=== PATIENT | female | born 1975 | race American Indian/Alaskan Native ===

== ENCOUNTER 2025-02-11 14:40 | Emergency (ER) | payer BC, SELFPAY ==
[2025-02-11 14:40] VITALS: BMI 47.6
[2025-02-11 14:46] VITALS: BP 171/132; BP 180/129; PULSE 92; RESP 18; TEMP 36.8; O2SAT 98
--- NOTE | 2025-02-11 14:47 | XR_ITS ---
Examination: Pelvic ultrasound, transabdominal, complete Technique: Transabdominal ultrasound of the pelvis performed using grayscale imaging Date and time of exam: February 11, 2025, 1640 hours INDICATIONS: Irregular heavy vaginal bleeding beginning yesterday FINDINGS: Uterus 8.2 cm endometrial stripe 0.58 cm No uterine mass or intrauterine gestation Ovaries obscured by bowel gas IMPRESSION: Limited study. No uterine mass or intrauterine gestation
--- NOTE | 2025-02-11 14:54 | EKG_ITS ---
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
[2025-02-11 15:05] VITALS: BP 171/132; PULSE 92
[2025-02-11] MEDS: cloNIDine HCL 0.1 MG TABLET 0.2 MG PO (15:05)
[2025-02-11 15:28] LABS: Collection Type, Urine Voided; Squamous Epithelial Cell,Urine 0 /hpf (0-5)
[2025-02-11 15:32] LABS: Basophils # (Auto) 0.1 Thou/mm3 (0.0-0.2); Basophils % (Auto) 1 % (0-2.5); Eosinophils # (Auto) 0.1 Thou/mm3 (0.0-0.5); Eosinophils % (Auto) 2 % (0-10); Hematocrit 41.6 % (36.0-46.0); Hemoglobin 13.7 g/dL (12.0-16.0); Immature Granulocytes % (Auto) 0 % (0-0); Immature Granulocytes Auto 0.02 Thou/mm3 (0.00-0.00); Lymphocytes # (Auto) 1.9 Thou/mm3 (1.0-4.8); Lymphocytes % (Auto) 31 % (10-50); Mean Corpuscular HGB Conc 32.9 g/dl (31.0-37.0); Mean Corpuscular Hemoglobin 28.1 pg (25.0-35.0); Mean Corpuscular Volume 85 fL (80-100); Monocytes # (Auto) 0.3 Thou/mm3 (0.0-0.8); Monocytes % (Auto) 5 % (0-12); Neutrophils # (Auto) 3.7 Thou/mm3 (1.8-7.7); Neutrophils % (Auto) 61 % (37-80); Nucleated Red Blood Cell % 0 /100 WBC (0); Platelet Count 260 Thou/mm3 (140-440); RDW Standard Deviation 45.4 fL (36.4-46.3); Red Blood Count 4.88 Miln/mm3 (4.00-5.20)
--- NOTE | 2025-02-11 15:39 | PD.EDVAGBL ---
ED OB Contraction Preg RMI/HPI General Chief complaint: Vaginal Bleeding Stated complaint: SEVERE MENSTRUAL PERIOD Time Seen by Provider: 02/11/25 14:43 Arrival date/time: 02/11/25 14:40 This is a case of a 49-year-old female who came in in the emergency room due to heavy vaginal bleeding patient states that menstrual period is irregular LMP was last month patient states that that her menstrual period started 2 days ago it was heavy with blood clots patient denies patient have no history of 0 patient denies any vaginal bleeding any urinary symptoms denies any abdominal pain Limitations: no limitations Related Data Previous Rx's ?Medication ?Instructions ?Recorded amoxicillin 875 mg-potassium 1 tab PO Q12H #20 tabs 04/04/18 clavulanate 125 mg tablet (Augmentin) hydrocodone 5 mg-acetaminophen 325 1 tab PO Q6H PRN pain #10 tabs 04/04/18 mg tablet ([place]) amoxicillin 875 mg-potassium 1 tab PO BID #14 tabs 04/24/21 clavulanate 125 mg tablet (Augmentin) albuterol sulfate 90 mcg/actuation 2 puff inhalation Q6H PRN 06/22/23 aerosol inhaler (Ventolin HFA) shortness of breath or wheezing #8.5 grams benzonatate 100 mg capsule 100 mg PO TID #14 caps 06/22/23 albuterol sulfate 2.5 mg/3 mL 2.5 mg (3 mL) inhalation Q4H PRN 03/11/24 (0.083 %) solution for nebulization shortness of breath or wheezing #90 mL prednisone 50 mg tablet 50 mg PO QDAY #7 tabs 03/11/24 cephalexin 500 mg capsule 500 mg PO QID #40 caps 02/11/25 medroxyprogesterone 10 mg tablet 10 mg PO QDAY 5 days #5 tabs 02/11/25 (Provera) Allergies Allergy/AdvReac Type Severity Reaction Status Date / Time clarithromycin Allergy Severe DIFF Verified 02/11/25 14:43 BREATHING AND HIVES tramadol Allergy Hallucinati Verified 02/11/25 14:43 ng NECTARINE TREE Allergy Intermediate HIVES, Uncoded 02/11/25 14:43 DIFF BREATHING PEACHES AdvReac Intermediate HIVES, Uncoded 02/11/25 14:43 DIFF BREATHING Review of Systems Review of Systems Systems Reviewed: All systems reviewed, normal except as documented Constitutional Constitutional: Reports system reviewed and no additional complaints, except as documented and Reports as per HPI ENT Ears, Nose, Mouth, and Throat: Denies dysphagia and Denies odynophagia Cardiovascular Cardiovascular: Reports system reviewed and no additional complaints, except as documented and Reports as per HPI Respiratory Respiratory: Reports system reviewed and no additional complaints, except as documented and Reports as per HPI Gastrointestinal Gastrointestinal: Reports system reviewed and no additional complaints, except as documented, Denies abdominal pain, Denies belching, Denies bloating, Denies change in bowel habits, Denies change in stool character, Denies coffee ground emesis, Denies constipation, Denies cramping, Denies diarrhea, Denies dyspepsia, Denies dysphagia, Denies early satiety, Denies excessive flatus, Denies fecal incontinence, Denies heartburn, Denies hematemesis, Denies hematochezia, Denies loose stools, Denies melena, Denies nausea, Denies odynophagia, Denies tenesmus and Denies vomiting Genitourinary Genitourinary: Reports system reviewed and no additional complaints, except as documented, Reports as per HPI, Reports abnormal menses, Reports abnormal vaginal bleeding, Denies amenorrhea, Denies change in libido, Denies difficulty conceiving, Denies difficulty voiding, Denies dysmenorrhea, Denies dyspareunia, Denies dysuria, Denies flank pain, Denies genital lesions, Denies genital pruritis, Denies hematuria, Denies hot flashes, Denies light periods, Reports menorrhagia, Denies metrorrhagia, Denies nipple discharge, Denies nocturia, Denies pelvic pain, Denies post void dribbling, Denies prolapse symptoms, Denies sexual dysfunction, Denies urinary frequency, Denies urinary incontinence, Denies urinary hesitancy, Denies urinary urgency, Denies vaginal discharge, Denies vaginal dryness, Denies vaginal odor and Denies vaginal pruritus Integumentary/Breasts Skin/Breast: Denies nipple discharge Neurologic Neurologic: Reports system reviewed and no additional complaints, except as documented and Reports as per HPI Psychiatric Psychiatric: Denies change in libido Endocrine Endocrine: Denies change in libido ED Exam General Limitations: Present no limitations General appearance: Present alert and in no apparent distress Head Head exam: Present atraumatic, normocephalic and normal inspection Eye Eye exam: Present normal appearance, PERRL and EOMI ENT ENT exam: Present normal exam, normal oropharynx and mucous membranes moist Neck Neck exam: Present normal inspection, full ROM and trachea midline; Absent tenderness, meningismus, lymphadenopathy or thyromegaly Chest Chest inspection: Present normal inspection and symmetric chest wall rise Respiratory Respiratory exam: Present normal lung sounds bilaterally; Absent respiratory distress, wheezes, stridor, accessory muscle use or prolonged expiratory phase Cardiovascular Cardiovascular exam: Present regular rate, normal rhythm and normal heart sounds Abdominal Exam Abdominal exam: Present soft and normal bowel sounds; Absent distention, tenderness, guarding, rebound, rigidity, diminished bowel sounds, hyperactive bowel sounds, hypoactive bowel sounds, organomegaly, trauma, incision, psoas sign, obturator sign, heel tap sign, Quinn's sign, Rovsing's sign, tenderness at McBurney's Point, bruit, pulsatile mass, hernia or scar Extremities Exam Extremities exam: Present normal inspection and full ROM Back Exam Back exam: Present normal inspection and full ROM Neurological Exam Neurological exam: Present alert, oriented X3, CN II-XII intact, normal gait and reflexes normal; Absent motor sensory deficit Psychiatric Psychiatric exam: Present normal affect and normal mood Skin Skin exam: Present warm, dry, intact and normal color Course Quality Measures none Orders Category Date Time Status EKG (ED ONLY) *Do not use* NOW Care 02/11/25 14:54 Active EKG (ED Only) Stat Exams 02/11/25 14:54 Draft US pelvic complete Stat Exams 02/11/25 14:47 Completed ABO/RH Type Stat Lab 02/11/25 15:09 Completed Beta HCG,Quantitative Stat Lab 02/11/25 15:09 Completed CBC Stat Lab 02/11/25 15:09 Completed CMP [Comprehensive Metabolic Panel] Stat Lab 02/11/25 15:09 Completed Urinalysis Stat Lab 02/11/25 15:17 Completed cloNIDine HCL [Catapres] Med 02/11/25 14:54 Discontinued 0.2 mg PO X1 ONE Vital Signs Vital signs: Vital Signs Temperature 98.2 F 02/11/25 14:46 Pulse Rate 92 02/11/25 14:46 Respiratory Rate 18 02/11/25 14:46 Blood Pressure 171/132 H 02/11/25 14:46 Pulse Oximetry (%) 98 02/11/25 14:46 Oxygen Delivery Method Room Air 02/11/25 14:46 Vaginal Bleeding MDM Narrative MDM Narrative: This is a case of a 49-year-old female who came in in the emergency room due to heavy vaginal bleeding patient states that menstrual period is irregular LMP was last month patient states that that her menstrual period started 2 days ago it was heavy with blood clots patient denies patient have no history of 0 patient denies any vaginal bleeding any urinary symptoms denies any abdominal pain physical examination patient is awake alert oriented not in distress nontoxic looking with excellent skin turgor abdominal exam is benign no guarding no rebound no rigidity negative psoas negative obturator negative Rovsing's negative McBurney's negative Quinn sign negative CVA tenderness no bladder distention or tenderness vital signs initial BP noted to be 180/100 patient states that she did not take his medication for blood pressure I reassessed the patient blood pressure was 165/110 thus patient was given clonidine 0.2 p.o. EKG showed sinus rhythm at 83 heart rate no chest pain no shortness of breath no palpitation BP was rechecked her 135/86 patient is not tachycardic not tachypneic not hypoxic and afebrile blood test showed no leukocytosis no anemia kidney and liver function is normal platelet is normal no electrolyte imbalance patient is not ultrasound showed normal no fibroids no ovarian cyst at this point patient will be discharged home in stable condition I prescribed 5 tablets of Provera just to minimize the bleeding until she sees the OB aircraft detail draftsperson the importance to see your OB aircraft detail draftsperson was discussed with the patient patient understood verbally patient was also prescribed cephalexin for urinary tract infection increase water intake and advised to take cranberry juice Patient was discharged with comfortable condition walking with stable gait. Patient verbalized no further complains explained diagnosis and answered patient question. Patient is comfortable with the proposed management plan including the need to follow up with his/her primary care physician and any specialist if applicable Discussed patient for any urgent condition or worsening sx, He/She needed to go to emergency room immediately or call 911. Patient acknowledge the responsibility to follow up as instructed and to monitor her/his symptoms. For any persistence of the symptoms for more than 3-5 days return precaution advised. Discussed the result of the test and was given printed discharge instruction Patient data External records reviewed:: [facility] previous records Clinical information provided by:: patient Social determinants that could affect healthcare access:: none Patient has the following chronic illnesses:: None How is presenting disease/condition affected by chronic disease/condition?: no chronic disease Evaluation data The following diagnostics were reviewed and interpreted by me:: lab results and radiology exam(s) Lab and/or radiology exams considered but not ordered:: Reviewed Interpretation Summary: Reviewed Medications / Prescriptions Medications or Prescriptions considered but not ordered:: Given Medication administrations:: Medication Administration History Discontinued Medications Clonidine (Clonidine Hcl 0.1 Mg Tablet) 0.2 mg PO X1 ONE Stop: 02/11/25 14:55 Last Admin: 02/11/25 15:05 Dose: 0.2 mg Documented By: KF Given Consultations Consultation(s) initiated? (list below): No Diagnosis Vaginal Bleeding Differential Diagnosis: dysfunctional uterine bleeding and vaginal bleeding Most likely diagnosis given after review of the tests above:: Abnormal vaginal bleeding Admission Indicated Admission indicated?: not indicated Explain why admission is indicated or not indicated:: Not indicated Admission Request Was there a request for admission?: No Admission Attestation Admission request attestation: Not indicated Disposition Plan Disposition Plan: Discharge Discharge Attestation Discharge Attestation: The patient and all family members were given an opportunity to ask questions and understood the discharge instructions. Discharge instructions specifically effects, indications for sooner follow up or return to the emergency department, and the expected course of current diagnosis. Patient condition: Stable Discharge Plan Plan Patient Disposition: HOME (Self Care) Patient condition on transfer: Stable Prescriptions/Referrals Prescriptions/Med Rec: New cephalexin 500 mg capsule 500 mg PO QID Qty: 40 0RF medroxyprogesterone [Provera] 10 mg tablet 10 mg PO QDAY 5 Days Qty: 5 0RF No Action hydrocodone-acetaminophen [[place]] 5-325 mg tablet 1 tab PO Q6H MDD 4 tabs PRN (Reason: pain) Qty: 10 0RF amoxicillin-pot clavulanate [Augmentin] 875-125 mg tablet 1 tab PO Q12H Qty: 20 0RF amoxicillin-pot clavulanate [Augmentin] 875-125 mg tablet 1 tab PO BID Qty: 14 0RF benzonatate 100 mg capsule 100 mg PO TID Qty: 14 0RF albuterol sulfate [Ventolin HFA] 90 mcg/actuation HFA aerosol inhaler 2 puff inhalation Q6H PRN (Reason: shortness of breath or wheezing) Qty: 8.5 0RF prednisone 50 mg tablet 50 mg PO QDAY Qty: 7 0RF albuterol sulfate 2.5 mg /3 mL (0.083 %) solution for nebulization 2.5 mg inhalation Q4H PRN (Reason: shortness of breath or wheezing) Qty: 90 0RF Referrals: Faustino Page FNP [Primary Care Provider] - In 1 week Problem List Clinical Impression: Abnormal uterine and vaginal bleeding, unspecified, Urinary tract infection Patient/Caregiver Discharge Instructions Education Materials: Urinary Tract Infections in Women, ED Dysfunctional Uterine Bleeding Additional Instructions: Follow-up with your primary care physician in 2 days for reevaluation it is very important to be referred to OB aircraft detail draftsperson for further evaluation and treatment of abnormal uterine bleeding for any persistence or recurrence worsening symptoms or any emergent concern call 911 or go to the nearest emergency room take your medication and finish the course of antibiotic increase water intake keep hydrated is advised Print Language: Moroccan Stand Alone Forms: An Award Info., Patient Portal Info Letter COCO/TRAFFIC COUNTER Supervising Physician COCO/TRINA Supervising Physician: Dr perea
[2025-02-11 15:48] LABS: Bilirubin,Urine Negative (Negative); Blood,Urine 3+ (Negative); Glucose, Urine Negative (Negative); Ketones,Urine Trace (Negative); Leukocyte Esterase,Urine Positive (Negative); Nitrite,Urine Negative (Negative); PH,Urine 5.5 (5.0-7.0); Protein,Urine 1+ (Neg - Trace); Specific Gravity,Urine 1.015 (1.001-1.035); Urobilinogen,Urine Negative mg/dL (0.0-1.0); WBC,Urine 52 /hpf (0-5)
[2025-02-11 15:49] LABS: Clarity,Urine Bloody (Clear/Hazy); Color,Urine Drk Red (Lt Yel-Yel)
[2025-02-11 15:51] LABS: Alanine Aminotransferase 23 U/L (10-49); Albumin, Serum 4.3 gm/dL (3.5-5.0); Albumin/Globulin Ratio 1.6 (1.2-2.2); Alkaline Phosphatase 87 U/L (46-116); Anion Gap 8 (7-16); Aspartate Amino Transferase 22 U/L (0-34); BUN/Creatinine Ratio 6 Ratio (12-20); Beta HCG,Quantitative < 1 mIU/mL (<5.0); Bilirubin,Total 0.5 mg/dL (0.3-1.2); Blood Urea Nitrogen 5 mg/dL (9-23); Calcium 8.9 mg/dL (8.3-10.6); Calcium (Corrected) 8.9 mg/dL (8.5-10.1); Carbon Dioxide 25.3 mMol/L (20.0-31.0); Chloride 107 mMol/L (98-107); Creatinine (Component) 0.9 mg/dL (0.6-1.3); Estimated Creatinine Clearance 112.4 mL/min (>60); Globulin 2.7 gm/dL (2.3-3.5); Glucose 148 mg/dL (74-106); Osmolality,Calculated 279 (275-295); Potassium 3.9 mMol/L (3.4-5.1); Sodium 140 mMol/L (136-145); eGFR > 60 See Note
[2025-02-11 16:00] VITALS: BP 165/106; PULSE 75; RESP 18; TEMP 37.3; O2SAT 98
--- NOTE | 2025-02-11 16:18 | PC.NURSE ---
PT TOLD THIS RN SHE HAS FULL BLADDER AND READY FOR US. SPOKE W/US AT THIS TIME, THEY ARE WITH A PT AND WILL SEE HER NEXT
[2025-02-11 17:46] VITALS: BP 135/86; PULSE 93; RESP 18; TEMP 36.7; O2SAT 99
== END 2025-02-11 17:57 | disposition home or self-care (01) ==
PROVIDERS: Nurse Practitioner Family; Emergency Provider Family Medicine
DX: N93.8 Other specified abnormal uterine and vaginal bleeding (principal); N39.0 Urinary tract infection, site not specified
CPT/HCPCS: 36415; 76856; 80053; 81001; 84702; 85025; 86900; 86901; 93005; 99284; A9270

== ENCOUNTER 2025-05-02 08:37 | Outpatient (AMB) | payer BC, SELFPAY ==
[2025-05-02 08:57] VITALS: BP 125/85; PULSE 72; RESP 16; TEMP 36.6; O2SAT 97; BMI 41.3
--- NOTE | 2025-05-02 08:57 | GYNCLNT_ITS ---
Vital Signs 05/02/25 08:57 Height 1.7 m Height Method Stated Weight 119.748 kg Weight Measurement Method Standing Scale BMI 41.3 BP 125/85 H Blood Pressure Source Automatic Cuff Blood Pressure Location Left Upper Arm Position Sitting Respiration 16 Pulse 72 Pulse Source Monitor Temp 97.9 F Temp Source Oral Pulse Oximetry (%) 97 Oxygen Delivery Method Room Air Allergies/Home Meds Allergies & Medications Allergies clarithromycin Allergy (Severe, Verified 05/02/25 08:58) DIFF BREATHING AND HIVES tramadol Allergy (Verified 05/02/25 08:58) Hallucinating NECTARINE TREE Allergy (Intermediate, Uncoded 05/02/25 08:58) HIVES, DIFF BREATHING PEACHES Adverse Reaction (Intermediate, Uncoded 05/02/25 08:58) HIVES, DIFF BREATHING Medication Reconciliation albuterol sulfate 90 mcg/actuation aerosol inhaler (Ventolin HFA) 2 puff inhalation Q6H PRN shortness of breath or wheezing #8.5 grams 06/22/23 [Rx Confirmed 05/02/25] benzonatate 100 mg capsule 100 mg PO TID #14 caps 06/22/23 [Rx Confirmed 05/02/25] albuterol sulfate 2.5 mg/3 mL (0.083 %) solution for nebulization 2.5 mg (3 mL) inhalation Q4H PRN shortness of breath or wheezing #90 mL 03/11/24 [Rx Confirmed 05/02/25] prednisone 50 mg tablet 50 mg PO QDAY #7 tabs 03/11/24 [Rx Confirmed 05/02/25] Intake Visit Data Collection New Patient or Established: Established Patient (seen at [facility] within 3 years) Reason for Visit:: HEAVY MENSES Seen by Clinical Staff ONLY (RN/MA): No Edge Polisher Required: No Do You Feel Safe at Home: Yes Authorities Contacted: N/A PCP or OBGYN visit in last 3 months: Yes Hx Now: No Are you currently on any form of Control: No Last menstrual period: 04/22/25 Pain Present Currently: No Pain Scale Used: Valderrama-Howard/Numerical Pain scale:: 0 Smoking Status Smoking Status: Never smoker 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 1. Little interest or pleasure in doing things: not at all 2. Feeling down, depressed, or hopeless: not at all Total score: 0 PHQ-9 3. Trouble falling or staying asleep, or sleeping too much: Not at all 4. Feeling tired or having little energy: Not at all 5. Poor appetite or overeating: Not at all 6. Feeling bad about yourself - or that you are a failure or have let yourself or your family down: Not at all 7. Trouble concentrating on things, such as reading the newspaper or watching television: Not at all 8. Moving or speaking so slowly that other people could have noticed? - Or the opposite - being so fidgety or restless that you have been moving around a lot more than usual: not at all 9. Thoughts that you would be better off or of hurting yourself in some way: Not at all Total score: 0 Source: Developed by Drs. Bhupendra Paulino, Carmela Dean, Zhao Corral and colleagues, with an educational caroline from [employer]. Depression screen completed yes Social History Living Situation History Lives With: Family Housing: House Tobacco History Smoking Status: Never smoker Second Hand Smoke Exposure: No Alcohol History Alcohol Intake: Current Alcohol Intake Frequency: holidays/special occasions only Domestic Abuse History Do You Feel Safe at Home: Yes History of Present Illness HPI Narrative Chief Complaint Pessary management Patient is an 84-year-old presenting for pessary management. She has had her pessary for 10 years, previously managed by Dr. Mak in [place]. She rep orts cleaning the pessary herself at home and visiting Dr. Mak every six months for check-ups. Three months ago, she experienced a slight kidney infection that was treated with antibiotics. She has a history of hysterectomy due to hemorrhaging and a history of breast cancer, with her right breast removed. Currently, [facility] due to a newly discovered lump in her left breast. Medical History: - Kidney infection treated with antibiotics three months ago - Breast cancer with right breast removal - Hypertension Surgical History: - Right breast removal due to breast cancer - Hysterectomy due to hemorrhaging - Gastric bypass Obstetric History: - GPAL: A0 L5 - All 5 pregnancies resulted in vaginal deliveries Medications: - Metoprolol - [id number] multivitamins Social History: - Obstetric History: 5, para 5, all vaginal deliveries Exam General General Appearance: alert, in no apparent distress and healthy appearing Head Head exam: atraumatic Neck Neck exam: Present normal inspection and trachea midline Chest Chest inspection: Present normal inspection and symmetric chest wall rise External exam: Present normal external exam; Absent tenderness Neuro Neurological exam: Present oriented X3 Psych Psychiatric exam: Present normal affect and normal mood Office Procedures OB Clinic LOC & Office Proc's Nursing/Assessment Patient Status: Established Patient OB Clinic Nursing Assessment: Medication Reconciliation, Update PMH in EMR and Vital Signs OB Clinic Coordination of Care: Complex Care and Chronic Disease 1-5, Consent,records obtained, informed consent, Education Simp Pt/Fam, Lab and Imaging orders, Results/Orders obtained and Staff clarify orders Established Patient Charge Established Patient Point Assignment: 105 Established Patient Point Charge: EP Level 3 (80-115) Assessment & Plan Diagnosis / Problem List (1) Prolapse of female pelvic organs: Status: Acute (2) Pessary maintenance: Status: Acute Plan Pelvic organ prolapse Assessment: Patient has been using a pessary for 10 years for management of pelvic organ prolapse. She has been self-cleaning the device at home and had regular follow-ups every six months with her previous provider. No current complaints related to the pessary were reported. Plan: - Continue current pessary use - Educate patient on signs of infection and erosion to monitor for (e.g., fresh blood) - Recommend use of coconut oil for irritation if needed - Follow-up appointment in 1 month to discuss urine results and examine pessary - Schedule next routine check-up in 6 months Urinary tract infection Assessment: Patient reports a history of slight kidney infection treated with antibiotics three months ago. Current infection status is unclear. Plan: - Order urine culture to ensure previous infection has cleared - Call patient with results if any abnormalities are found Breast mass Assessment: Patient has a history of right breast removal due to breast cancer. She reports a new lump in her left breast and is [facility]. Plan: - Await results from upcoming breast center follow-up - Discuss findings at next appointment in 1 month
== END 2025-05-02 09:10 | disposition home or self-care (01) ==
LOC: HODSOBC 08:37
PROVIDERS: Supervising Provider Obstetrics & Gynecology; Visit Provider Obstetrics & Gynecology
DX: N81.9 Female genital prolapse, unspecified (principal); N63.20 Unspecified lump in the left breast, unspecified quadrant; Z87.440 Personal history of urinary (tract) infections; Z96.0 Presence of urogenital implants; Z85.3 Personal history of malignant neoplasm of breast; Z98.84 Bariatric surgery status; Z90.710 Acquired absence of both cervix and uterus; Z79.52 Long term (current) use of systemic steroids; Z79.899 Other long term (current) drug therapy; Z88.5 Allergy status to narcotic agent; Z91.018 Allergy to other foods; Z88.1 Allergy status to other antibiotic agents
CPT/HCPCS: 99213; G0463

== ENCOUNTER 2025-05-21 08:59 | Outpatient (AMB) | payer BC, SELFPAY ==
[2025-05-21 09:16] VITALS: BP 128/82; PULSE 66; RESP 16; TEMP 36.2; O2SAT 98; BMI 41.7
--- NOTE | 2025-05-21 09:16 | AMB.GYNCLNOT ---
Vital Signs 05/21/25 09:16 Height 1.7 m Height Method Stated Weight 120.656 kg Weight Measurement Method Standing Scale BMI 41.7 BP 128/82 Blood Pressure Source Automatic Cuff Blood Pressure Location Left Upper Arm Position Sitting Respiration 16 Pulse 66 Pulse Source Monitor Temp 97.2 F Temp Source Oral Pulse Oximetry (%) 98 Oxygen Delivery Method Room Air Allergies/Home Meds Allergies & Medications Allergies clarithromycin Allergy (Severe, Verified 05/21/25 09:17) DIFF BREATHING AND HIVES tramadol Allergy (Verified 05/21/25 09:17) Hallucinating NECTARINE TREE Allergy (Intermediate, Uncoded 05/21/25 09:17) HIVES, DIFF BREATHING PEACHES Adverse Reaction (Intermediate, Uncoded 05/21/25 09:17) HIVES, DIFF BREATHING Medication Reconciliation albuterol sulfate 90 mcg/actuation aerosol inhaler (Ventolin HFA) 2 puff inhalation Q6H PRN shortness of breath or wheezing #8.5 grams 06/22/23 [Rx Confirmed 05/21/25] benzonatate 100 mg capsule 100 mg PO TID #14 caps 06/22/23 [Rx Confirmed 05/21/25] albuterol sulfate 2.5 mg/3 mL (0.083 %) solution for nebulization 2.5 mg (3 mL) inhalation Q4H PRN shortness of breath or wheezing #90 mL 03/11/24 [Rx Confirmed 05/21/25] prednisone 50 mg tablet 50 mg PO QDAY #7 tabs 03/11/24 [Rx Confirmed 05/21/25] amoxicillin 500 mg capsule 500 mg PO Q8H 10 days #30 caps 05/21/25 [Rx] bismuth subsalicylate 262 mg/15 mL oral suspension (Kaopectate (bismuth subsalicylate)) 524 mg (30 mL) PO QID 10 days #1,200 mL 05/21/25 [Rx] metronidazole 500 mg tablet 500 mg PO Q8H 7 days #21 tabs 05/21/25 [Rx] omeprazole 20 mg capsule,delayed release 20 mg PO BID 30 days #60 caps 05/21/25 [Rx] Intake Visit Data Collection New Patient or Established: Established Patient (seen at [facility] within 3 years) Reason for Visit:: LAB RESULTS Seen by Clinical Staff ONLY (RN/MA): No 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: No Do You Feel Safe at Home: Yes Authorities Contacted: N/A PCP or OBGYN visit in last 3 months: Yes Date of Last PCP or OBGYN visit: 05/02/25 Hx Now: Yes Are you currently on any form of Control: No Pain Present Currently: No Pain Scale Used: Valderrama-Howard/Numerical Pain scale:: 0 Smoking Status Smoking Status: Never smoker Administrative Personal Assistant history Administrative Personal Assistant History Menstrual regularity: irregular Flow: heavy Monthly: No Age at menarche: 16 Menopausal: No Currently sexually active: No 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 1. Little interest or pleasure in doing things: not at all 2. Feeling down, depressed, or hopeless: not at all Total score: 0 PHQ-9 3. Trouble falling or staying asleep, or sleeping too much: Not at all 4. Feeling tired or having little energy: Not at all 5. Poor appetite or overeating: Not at all 6. Feeling bad about yourself - or that you are a failure or have let yourself or your family down: Not at all 7. Trouble concentrating on things, such as reading the newspaper or watching television: Not at all 8. Moving or speaking so slowly that other people could have noticed? - Or the opposite - being so fidgety or restless that you have been moving around a lot more than usual: not at all 9. Thoughts that you would be better off or of hurting yourself in some way: Not at all Total score: 0 If you checked off any problems, how difficult have these problems made it for you to do your work, take care of things at home, or get along with other people?: not difficult at all Source: Developed by Drs. Bhupendra Paulino, Carmela Dean, Zhao Corral and colleagues, with an educational caroline from [employer]. Depression screen completed yes Social History Living Situation History Lives With: Family Housing: House Tobacco History Smoking Status: Never smoker Second Hand Smoke Exposure: No Alcohol History Alcohol Intake: Current Alcohol Intake Frequency: holidays/special occasions only Domestic Abuse History Do You Feel Safe at Home: Yes History of Present Illness HPI Narrative Bhavani Stephens presents for follow-up from previous evaluation for pelvic arch and prolapse. She is currently using a Pessary which she cleans and puts back herself. The patient reports feeling tired, which she attributes to having just been to see her primary care doctor. The patient has been diagnosed with H. pylori by her primary care physician but has been unable to afford the prescribed medications, stating they cost 60 to 80 dollars each or more and are not covered by her insurance. She has not been able to obtain treatment for this condition due to financial constraints. She continues to manage her hypertension with Lisinopril. The patient denies having any urinary symptoms despite laboratory findings suggesting a possible urinary tract infection. She is a 50-year-old female. Reports inability to afford prescribed medications due to lack of insurance coverage, with medications costing $60-80 each or more. ROS: General: Positive for fatigue. 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 Diagnostic Test Results and Labs: - Menopause panel (05-02-2025): Estradiol 28, Progesterone <10, FSH 26, LH 10.0 - Hemoglobin: 13.5 g/dL - CMP: Within normal limits - Glucose: 93 - BUN: 8 - Creatinine: 0.7 - eGFR: 107 - BUN/Creatinine ratio: 11 - Sodium: 137 - Potassium: 4.8 - AST: 36 - ALT: 26 - Urinalysis: Cloudy appearance, trace protein, WBC esterase positive, epithelial cells >10, bacteria many - Creatinine kinase: 438 - Myoglobin: 31 - Previous pelvic ultrasound: Results previously reviewed with patient Exam General General Appearance: alert, in no apparent distress and healthy appearing Head Head exam: atraumatic Neck Neck exam: Present normal inspection and trachea midline Chest Chest inspection: Present normal inspection and symmetric chest wall rise External exam: Present normal external exam; Absent tenderness Neuro Neurological exam: Present oriented X3 Psych Psychiatric exam: Present normal affect and normal mood Office Procedures [facility] Clinic LOC & Office Proc's Nursing/Assessment Patient Status: Established Patient OB Clinic Nursing Assessment: Medication Reconciliation, Update PMH in EMR and Vital Signs OB Clinic Coordination of Care: Education Complex Pt/Fam, Consent,records obtained, informed consent, Lab and Imaging orders, Results/Orders obtained and Staff clarify orders Special Needs: Heart tones Established Patient Charge Established Patient Point Assignment: 115 Established Patient Point Charge: EP Level 3 (80-115) Assessment & Plan Diagnosis / Problem List (1) H. pylori duodenitis: Status: Acute (2) Pessary maintenance: Status: Acute (3) Prolapse of female pelvic organs: Status: Acute Plan Urinary Tract Infection: - Urinalysis shows cloudy appearance with trace blood, WBC esterase positive, epithelial cells >10, and many bacteria, consistent with UTI. - Patient reports fatigue which could be related to the bladder infection. Plan: - Prescribe antibiotic that will cover both UTI and H. pylori. - Review insurance coverage to find covered antibiotic options. - Look for coupons and discount programs for medications. H. pylori Infection: - Patient has H. pylori (stomach bacteria) that requires treatment. - Patient unable to afford prescribed medications due to cost ($60-80 each) and insurance coverage issues. Plan: - Prescribe antibiotic that will cover both H. pylori and UTI. - Review insurance coverage to find covered antibiotic options. - Look for coupons and discount programs for medications. Perimenopause with Irregular Bleeding: - Menopause panel from 05/02/2025 shows estradiol 28, progesterone <10, FSH 26, LH 10.0. - FSH level indicates patient is in transition to menopause but not yet menopausal. - Patient is experiencing irregular bleeding as part of this transition process. Plan: - No hormonal intervention at this time. - Reassess in 3-6 months as patient may progress to menopause during this timeframe. Pelvic Organ Prolapse: - Patient continues to manage prolapse with pessary (Passri) which she cleans and replaces herself. - Previous pelvic ultrasound has been reviewed. Plan: - Continue current pessary management. Hypertension: - Patient on Lisinopril for hypertension. - Current blood pressure 128/82 mmHg shows adequate control. Plan: - Continue current antihypertensive management.
== END 2025-05-21 10:01 | disposition home or self-care (01) ==
PROVIDERS: Supervising Provider Obstetrics & Gynecology; Visit Provider Obstetrics & Gynecology
DX: K29.80 Duodenitis without bleeding (principal); B96.81 Helicobacter pylori [H. pylori] as the cause of diseases classified elsewhere; N81.89 Other female genital prolapse; N39.0 Urinary tract infection, site not specified; I10 Essential (primary) hypertension; N92.4 Excessive bleeding in the premenopausal period; Z79.899 Other long term (current) drug therapy; Z59.71 Insufficient health insurance coverage
CPT/HCPCS: 99213; G0463

== ENCOUNTER 2025-06-05 06:14 | Emergency (ER) | payer BC, SELFPAY ==
[2025-06-05] VITALS (11 sets, daily range): BP systolic 121–168; BP diastolic 73–96; PULSE 59–91; RESP 14–25; TEMP 36.7–37; O2SAT 98–100; BMI 41.5
--- NOTE | 2025-06-05 | XR_ITS ---
Examination: MRI of brain without intravenous contrast. MRI brain with intravenous contrast. Date and time of exam: June 05, 2025, 1220 hours INDICATIONS: Severe dizziness episodes today Technique: Multiple axial and sagittal images of the brain to been obtained. Siemens high-resolution 1.52 Yasmeen short bore scanner utilized. Sagittal sections, T1 weighted images, TR 500, TE 14, are performed. Axial sections proton-density and T2-weighted images have been obtained. Inversion recovery axial images, TR 9260, TE 111, TR 2500. Diffusion weighted images, axial sections, TR 4800, TE 128, B value 1000. Axial sections, ADC map, TR 4800, TE 128. Axial and coronal images were also obtained post 20 cc gadolinium administered intravenously. Findings:: Enlargement of the sella turcica is not present. The optic chiasm and infundibular stalk are not remarkable. There is no localized enlargement of the medulla or gail. Fourth ventricle and cerebellar tonsils appear normal in position. No subacute area of hemorrhage density is seen. Fourth ventricle is midline. Mass in the cerebellopontine angle region is not evident. 7th and 8th nerve complexes exhibit symmetry Globes are symmetrical Orbital musculature including medial lateral rectus muscles do not exhibit abnormality Increased white matter signal is not seen Effacement of the cortical sulcal markings is not identified. Mass effect upon the ventricular system is not identified. Diffusion-weighted images demonstrate no focus of restricted diffusion Contrast images demonstrate no abnormal contrast enhancement Impression: Negative for acute hemorrhage, mass effect or midline shift No acute infarct No MRI findings of demyelinating disease
--- NOTE | 2025-06-05 06:30 | PC.NURSE ---
Dr. Fragoso at bedside to assess pt
--- NOTE | 2025-06-05 06:33 | XR_ITS ---
Examination: CT brain head without contrast. 2-D sagittal coronal reconstructions Date and time of exam: June 05, 2025, 0822 hours, comparison May 23, 2020 INDICATIONS: Severe dizziness episodes today CTDI: vol (mGy): 51.7 DLP: (mGycm): 1003 Technique: Multiple CT axial sections of the brain have been obtained, 5 mm slice thickness. Contrast has not been administered. 2-D sagittal, coronal reconstructions have been obtained Low dose protocols were performed. One or more of the following dose reduction techniques were used; automated exposure control, adjustment of the mA and/or KV according to patient size, use of iterative reconstruction technique. Findings: No significant ventricular enlargement. Intra-axial or extra-axial hemorrhage density is not seen. No mass effect or midline shift Basal cisterns are not remarkable. Fourth ventricle is midline. Cranial vault intact. 14 mm ossification left frontal convexity image 9 Impression: Negative for acute hemorrhage, mass effect or midline shift Brain MRI follow-up, pre and postcontrast would best assess for demyelinating disease, acute ischemic change, as well as confirmed incidental left frontal convexity meningioma
--- NOTE | 2025-06-05 06:34 | PD.EDADULT ---
ED General RME/HPI General Chief complaint: Dizziness Stated complaint: DIZZINESS Time Seen by Provider: 06/05/25 06:19 Arrival date/time: 06/05/25 06:14 RME / HPI RME / HPI narrative: Bhavani is a 50 y/o female with PMHx of HTN, H. pylori infection (active), and ?DM2 who comes in for acute onset of dizziness around 5AM that awoke her from her sleep, while lying down, has never happened to before, did not take anything, with associated diffuse headache rated 6 out of 10, and nausea and vomiting. Pt reports this has never happened to her before and denied a history of vertigo. Patient reports she made dinner last night and had chicken. She lives alone and no one around her physically's. She denies any recent travel. She says her new medicines/supplements have been a new multivitamin that is a gummy. She denies seeing any blood thinners. She denies a family history of stroke or intracranial bleeding. Denies a history of vertigo. Denies numbness, tingling. She says she has no hx of seizures. She denies feeling as if she was going to pass out. She has no other complaints at this time. Endorses weight loss of about 45 lbs within the past two months that has been through diet. Related Data Home Medications ?Medication ?Instructions ?Recorded ?Confirmed lisinopril 10 mg tablet 10 mg PO QDAY 06/05/25 06/05/25 Previous Rx's ?Medication ?Instructions ?Recorded albuterol sulfate 90 mcg/actuation 2 puff inhalation Q6H PRN 06/22/23 aerosol inhaler (Ventolin HFA) shortness of breath or wheezing #8.5 grams benzonatate 100 mg capsule 100 mg PO TID #14 caps 06/22/23 albuterol sulfate 2.5 mg/3 mL 2.5 mg (3 mL) inhalation Q4H PRN 03/11/24 (0.083 %) solution for nebulization shortness of breath or wheezing #90 mL prednisone 50 mg tablet 50 mg PO QDAY #7 tabs 03/11/24 amoxicillin 500 mg capsule 500 mg PO Q8H 10 days #30 caps 05/21/25 omeprazole 20 mg capsule,delayed 20 mg PO BID 30 days #60 caps 05/21/25 release Allergies Allergy/AdvReac Type Severity Reaction Status Date / Time clarithromycin Allergy Severe DIFF Verified 05/21/25 09:17 BREATHING AND HIVES tramadol Allergy Hallucinati Verified 05/21/25 09:17 ng NECTARINE TREE Allergy Intermediate HIVES, Uncoded 05/21/25 09:17 DIFF BREATHING PEACHES AdvReac Intermediate HIVES, Uncoded 05/21/25 09:17 DIFF BREATHING Review of Systems Review of Systems Narrative Review of Systems: 12 point ROS reviewed and is otherwise negative unless stated directly in the HPI ED Exam Narrative Physical exam: General: AAOx3, morbidly obese, in mild distress HEENT: Moist mucous membranes, conjunctiva clear, EOMI, PERRLA, Cardiovascular: S1, S2, radial pulses +2 bilat, RRR Pulmonary: CTAB bilat no cough, no wheezing GI: No tenderness to light or deep palpitation, no guarding, rigidity, rebound tenderness or distension Extremities: No presence of trace or pitting edema in lower extremities bilaterally, dorsalis pedis pulses +2 bilaterally Neuro: AAOx3, no focal motor or sensory deficits in the UE or LE bilat, finger to nose intact, mike manuever positive upon R rotation Psych: Good judgement, thought and behavior Course Quality Measures none Orders Category Date Time Status Insert IV NOW Care 06/05/25 06:53 Active MRI Screening NOW Care 06/05/25 10:49 Active Orthostatic Vitals NOW Care 06/05/25 08:47 Active Consult to Neurology / Tele-Neurology Stat Cons 06/05/25 10:[address] head/brain wo con Stat Exams 06/05/25 06:33 Completed MR head/brain wo/w con Stat Exams 06/05/25 Completed CBC Stat Lab 06/05/25 07:00 Completed CMP [Comprehensive Metabolic Panel] Stat Lab 06/05/25 07:00 Completed Drug Screen,Urine Stat Lab 06/05/25 12:15 Completed HCG,Qualitative Serum Stat Lab 06/05/25 07:00 Completed DiphenhydrAMINE INJ [Benadryl Inj] Med 06/05/25 09:14 Discontinued 12.5 mg IVP X1 ONE Lisinopril [Prinivil] Med 06/05/25 13:06 Discontinued 10 mg PO X1 ONE Meclizine HCl [Antivert] Med 06/05/25 06:33 Discontinued 25 mg PO X1 ONE Metoclopramide Inj [Reglan Inj] Med 06/05/25 09:14 Discontinued 10 mg IVP X1 ONE Ondansetron Odt [Zofran Odt] Med 06/05/25 06:33 Discontinued 4 mg PO X1 ONE Sodium Chloride 0.9% 1000 ml [Ns] 1,000 ml Med 06/05/25 06:54 Discontinued IV 999 mls/hr Vital Signs Vital signs: Vital Signs Temperature 98.1 F 06/05/25 06:35 Pulse Rate 76 06/05/25 06:35 Respiratory Rate 16 06/05/25 06:35 Blood Pressure 135/73 H 06/05/25 06:35 Pulse Oximetry (%) 100 06/05/25 06:35 Oxygen Delivery Method Room Air 06/05/25 06:35 Discharge Plan Plan Patient Disposition: HOME (Self Care) Prescriptions/Referrals Prescriptions/Med Rec: No Action amoxicillin 500 mg capsule 500 mg PO Q8H 10 Days Qty: 30 1RF omeprazole 20 mg capsule,delayed release(DR/EC) 20 mg PO BID 30 Days Qty: 60 1RF lisinopril 10 mg tablet 10 mg PO QDAY Patient Comments: TAKE 1 TABLET BY MOUTH EVERY DAY benzonatate 100 mg capsule 100 mg PO TID Qty: 14 0RF albuterol sulfate [Ventolin HFA] 90 mcg/actuation HFA aerosol inhaler 2 puff inhalation Q6H PRN (Reason: shortness of breath or wheezing) Qty: 8.5 0RF prednisone 50 mg tablet 50 mg PO QDAY Qty: 7 0RF albuterol sulfate 2.5 mg /3 mL (0.083 %) solution for nebulization 2.5 mg inhalation Q4H PRN (Reason: shortness of breath or wheezing) Qty: 90 0RF Referrals: Faustino Page FNP [Primary Care Provider] - In 1 week Problem List Clinical Impression: Vertigo Patient/Caregiver Discharge Instructions Print Language: Guamanian Stand Alone Forms: An Award Info., Patient Portal Info Letter MDM Narrative MDM hospital course (for use when minimal MDM required): 0633: Basic labs, IV, head CT, serum Hcg, Zofran, and meclizine 25 mg 0915: Serum Hcg negative, Head CT shows convexity 14 mm on L frontal lobe, possibly representing meningoma. Will initiate IV reglan and Bendaryl at this time. 1100: Neurology consult, recommends MRI brain w/ and w/o due to acute onset of dizziness, could manifest as MS. 1423: MRI negative at this time, however, Neurology would like to see patient and review images before recommending on further disposition. 1825: Case discussed with and passed down to ED Provider, Dr. Killian. Medication Administration(s) Medication Administration History Discontinued Medications Diphenhydramine HCl (Diphenhydramine Inj 50 Mg/Ml Vial) 12.5 mg IVP X1 ONE Stop: 06/05/25 09:15 Last Admin: 06/05/25 09:22 Dose: 12.5 mg Documented By: DB Sodium Chloride (Ns) 1,000 mls @ 999 mls/hr IV .Q1H1M ONE Stop: 06/05/25 07:54 Last Infusion: 06/05/25 11:31 Dose: Infused Documented By: Admin: 06/05/25 09:19 Dose: 999 mls/hr Documented By: ADITI Lisinopril (Lisinopril 20 Mg Tablet) 10 mg PO X1 ONE Stop: 06/05/25 13:07 Last Admin: 06/05/25 13:25 Dose: 10 mg Documented By: DB Meclizine HCl (Meclizine Hcl 25 Mg Tablet) 25 mg PO X1 ONE Stop: 06/05/25 06:34 Last Admin: 06/05/25 06:46 Dose: 25 mg Documented By: CCT Metoclopramide HCl (Metoclopramide Inj 5 Mg/Ml Vial 2 Ml) 10 mg IVP X1 ONE; Protocol Stop: 06/05/25 09:15 Last Admin: 06/05/25 09:21 Dose: 10 mg Documented By: ADITI Ondansetron HCl (Ondansetron Odt 4 Mg Tabrap) 4 mg PO X1 ONE; Protocol Stop: 06/05/25 06:34 Last Admin: 06/05/25 06:40 Dose: 4 mg Documented By: CCT Consultations/Discussions re: Management Consult #1: Date/time: 06/05/25 11:07 am Physician, specialty, service, details: 1100: Spoke with Neurology, Dr. Augustine, recommends MRI brain w and w/o for workup of dizziness. 1423: MRI negative at this time, however, Neurology would like to see patient and review images before recommending on further disposition.
[2025-06-05] MEDS: ONDANSETRON ODT 4 MG TABRAP PO (06:40)
[2025-06-05] MEDS: MECLIZINE HCL 25 MG TABLET PO ×2 (06:46→20:34)
[2025-06-05 07:23] LABS: Basophils # (Auto) 0.1 Thou/mm3 (0.0-0.2); Basophils % (Auto) 1 % (0-2.5); Eosinophils # (Auto) 0.2 Thou/mm3 (0.0-0.5); Eosinophils % (Auto) 2 % (0-10); Hematocrit 41.7 % (36.0-46.0); Hemoglobin 13.4 g/dL (12.0-16.0); Immature Granulocytes Auto 0.05 Thou/mm3 (0.00-0.00); Lymphocytes # (Auto) 3.5 Thou/mm3 (1.0-4.8); Lymphocytes % (Auto) 34 % (10-50); Mean Corpuscular HGB Conc 32.1 g/dl (31.0-37.0); Mean Corpuscular Hemoglobin 28.0 pg (25.0-35.0); Mean Corpuscular Volume 87 fL (80-100); Monocytes # (Auto) 0.5 Thou/mm3 (0.0-0.8); Monocytes % (Auto) 5 % (0-12); Neutrophils # (Auto) 5.9 Thou/mm3 (1.8-7.7); Neutrophils % (Auto) 58 % (37-80); Nucleated Red Blood Cell # 0.00 Thou/mm3 (0.00-0.00); Nucleated Red Blood Cell % 0 /100 WBC (0); Platelet Count 275 Thou/mm3 (140-440); RDW Standard Deviation 48.6 fL (36.4-46.3); Red Blood Count 4.79 Miln/mm3 (4.00-5.20); White Blood Count 10.3 Thou/mm3 (3.6-11.0)
[2025-06-05 07:35] LABS: Alanine Aminotransferase 15 U/L (10-49); Albumin, Serum 4.1 gm/dL (3.5-5.0); Albumin/Globulin Ratio 1.5 (1.2-2.2); Alkaline Phosphatase 79 U/L (46-116); Anion Gap 10 (7-16); Aspartate Amino Transferase 18 U/L (0-34); BUN/Creatinine Ratio 10 Ratio (12-20); Bilirubin,Total 0.4 mg/dL (0.3-1.2); Blood Urea Nitrogen 8 mg/dL (9-23); Calcium 9.0 mg/dL (8.3-10.6); Calcium (Corrected) 9.0 mg/dL (8.5-10.1); Carbon Dioxide 25.6 mMol/L (20.0-31.0); Chloride 104 mMol/L (98-107); Creatinine (Component) 0.8 mg/dL (0.6-1.3); Estimated Creatinine Clearance 115.5 mL/min (>60); Globulin 2.7 gm/dL (2.3-3.5); Glucose 125 mg/dL (74-106); Osmolality,Calculated 278 (275-295); Potassium 4.0 mMol/L (3.4-5.1); Sodium 140 mMol/L (136-145); Total Protein 6.8 gm/dL (5.7-8.2); eGFR > 60 See Note
[2025-06-05 08:25] LABS: HCG,Qualitative Serum Negative
[2025-06-05] MEDS: SODIUM CHLORIDE 0.9% 1000 ML 1,000 ML 999 ML IV (09:19)
[2025-06-05] MEDS: METOCLOPRAMIDE INJ 5 MG/ML VIAL 2 ML 10 MG IVP (09:21)
[2025-06-05 12:43] LABS: Amphetamine/Methamp Scrn,U Negative (Negative); Barbiturate Screen,Urine Negative (Negative); Benzodiazepines Screen,Urine Negative (Negative); Benzoylecgonine Screen, Ur Negative (Negative); Fentanyl Screen,Urine Negative (Negative); Opiate Screen,Urine Negative (Negative); THC Screen,Urine Negative (Negative)
--- NOTE | 2025-06-05 17:16 | ESCONSULT_ITS ---
HPI Data of Consult Primary Care Provider: TRINA Martinez Consult Narrative Reason for consult: dizziness History of present illness: Bhavani Briceño is 50 yr female with PMH of hypertension, untreated H. pylori infection presenting to ED due to chief complaint of dizziness. Patient reports that symptoms started last night while laying in bed. She was unable to get up due to aggravation of the dizziness. [place] as if the room was spinning and would worsen with any movement. Denies any episodes of this in the past. Endorses 3 episodes of vomiting associated with nausea. Had intentional weight loss of about 45 pounds since January. She has adequate nutritional and water intake. Denies headache, blurry vision, chest pain, numbness. Symptoms have improved since receiving meclizine in ED. At bedside BP was noted to be slightly elevated 157/98. Patient normally checks blood pressure at home daily, systolic ranging from 120?125. States that blood pressure typically well-controlled. Labs are unremarkable. CT head negative for acute hemorrhage. MRI brain negative for acute hemorrhage or infarct. No findings of demyelinating disease on the MRI. Neurology consulted for patient's dizziness. After evaluation and discussion with attending, patient is deemed safe for discharge. Likely diagnosis of BPPV. Recommend to use meclizine 12.5mg BID PRN for dizziness and follow up with Dr. Augustine outpatient. cc:: cc: Review of Systems Review of Systems Systems Reviewed: All systems reviewed, normal except as documented Exam Vital Signs Temp Pulse Resp BP Pulse Ox O2 Del Method 98.2 F 77 16 142/73 H 99 Room Air 06/05/25 15:06 06/05/25 15:00 06/05/25 15:00 06/05/25 15:00 06/05/25 15:00 06/05/25 15:00 Narrative Exam General: Middle age female, No acute distress, cooperative HEENT: NCAT, No JVD noted. Mucosa moist. Pupils are equal and reactive to light bilaterally Cardiovascular: Normal S1 and S2. Regular rate and rhythm. Respiratory: Lungs are clear to auscultation bilaterally. No wheezing or crackles heard. Abdomen: Soft, nontender, not distended, normal bowel sounds. Skin: Warm to touch, dry, no rashes noted Musculoskeletal: No gross injuries. Able to move all 4 extremities. No pitting edema Neuro: Alert and oriented x3. No focal neuro deficits. No dysmetria on finger to nose test. Dizziness worsens when patient tries to sit up. Psych: Normal affect and mood Results Labs 06/05/25 07:00 06/05/25 07:00 Labs: Short CBC 06/05/25 Range/Units 07:00 WBC 10.3 (3.6-11.0) Thou/mm3 Hgb 13.4 (12.0-16.0) g/dL Hct 41.7 (36.0-46.0) % Plt Count 275 (140-440) Thou/mm3 BMP 06/05/25 07:00 Sodium 140 Potassium 4.0 Chloride 104 Carbon Dioxide 25.6 BUN 8 L Creatinine 0.8 Glucose 125 H Calcium 9.0 Liver Function 06/05/25 Range/Units 07:00 Total Bilirubin 0.4 (0.3-1.2) mg/dL AST 18 (0-34) U/L ALT 15 (10-49) U/L Alkaline Phosphatase 79 (46-116) U/L Albumin 4.1 (3.5-5.0) gm/dL Quality Measures Quality Measures VTE prophylaxis Medications Home Medications and Allergies Home Medications ?Medication ?Instructions ?Recorded ?Confirmed ?Type lisinopril 10 mg tablet 10 mg PO QDAY 06/05/2506/05 History Allergies Allergy/AdvReac Type Severity Reaction Status Date / Time clarithromycin Allergy Severe DIFF Verified 05/21/25 09:17 BREATHING AND HIVES tramadol Allergy Hallucinati Verified 05/21/25 09:17 ng NECTARINE TREE Allergy Intermediate HIVES, Uncoded 05/21/25 09:17 DIFF BREATHING PEACHES AdvReac Intermediate HIVES, Uncoded 05/21/25 09:17 DIFF BREATHING Visit Medications Discontinued Medications Diphenhydramine HCl (Diphenhydramine Inj 50 Mg/Ml Vial) 12.5 mg IVP X1 ONE Stop: 06/05/25 09:15 Last Admin: 06/05/25 09:22 Dose: 12.5 mg Sodium Chloride (Ns) 1,000 mls @ 999 mls/hr IV .Q1H1M ONE Stop: 06/05/25 07:54 Last Infusion: 06/05/25 11:31 Dose: Infused Lisinopril (Lisinopril 20 Mg Tablet) 10 mg PO X1 ONE Stop: 06/05/25 13:07 Last Admin: 06/05/25 13:25 Dose: 10 mg Meclizine HCl (Meclizine Hcl 25 Mg Tablet) 25 mg PO X1 ONE Stop: 06/05/25 06:34 Last Admin: 06/05/25 06:46 Dose: 25 mg Metoclopramide HCl (Metoclopramide Inj 5 Mg/Ml Vial 2 Ml) 10 mg IVP X1 ONE; Protocol Stop: 06/05/25 09:15 Last Admin: 06/05/25 09:21 Dose: 10 mg Ondansetron HCl (Ondansetron Odt 4 Mg Tabrap) 4 mg PO X1 ONE; Protocol Stop: 06/05/25 06:34 Last Admin: 06/05/25 06:40 Dose: 4 mg Assessment & Plan Plan Bhavani Briceño is 50 yr female with PMH of hypertension, untreated H. pylori infection presenting to ED due to chief complaint of dizziness. Endorses 3 episodes of vomiting associated with nausea. Neurology consulted for patient's dizziness. #Dizziness Ddx: BPPV, vestibular neuritis, M?ni?re's, hypertension related dizziness The dizziness started suddenly while the patient was lying down, worsened with movement, and was associated with 3 episodes of vomiting and nausea. Improvement noticed with meclizine dose in the ED. CT head negative for acute hemorrhage. MRI brain negative for acute hemorrhage or infarct. No findings of demyelinating disease or meningioma on the MRI. -BP control -meclizine 12.5 mg BID -follow up with PT for vestibular rehab therapy -safe to dc patient. Follow up with neurology outpatient #HTN #H pylori infection #Pelvic organ prolapse Primary care team to manage above conditions and ongoing care needs. The patient's management plan was discussed with my attending physician Dr. Augustine. Violetta Najera, PGY-2 Attending Provider Attestation/Addendum I independently reviewed the patient's record and agreed with the resident's findings, assessment and plan of care. Most likely has BPPV. Agreed with symptomatic therapy and positional exercises.
--- NOTE | 2025-06-05 18:46 | EDNOTE_ITS ---
Emergency Room Addendum <Raiza Kirk - Last Filed: 06/05/25 19:53> Addendum Narrative: 1800: Care assumed from Dr. Fragoso (emergency resident physician). Past medical, surgical, social and family history reviewed. Vitals and home medications reviewed. Results and treatment plan discussed. I will assume the care of the patient at this time and will follow the patient, pending Dr. Augustine to consult . The following addendum documentation note is intended to reflect any pending information, findings, or radiology results not included in the patient?s initial chart by the previous shift scribe. <Antonio Rocha KillianDO - Last Filed: 06/05/25 20:04> Addendum Narrative: 1800: Care assumed from Dr. Fragoso (emergency resident physician). Past me dical, surgical, social and family history reviewed. Vitals and home medications reviewed. Results and treatment plan discussed. I will assume the care of the patient at this time and will follow the patient, pending Dr. Augustine to consult . The following addendum documentation note is intended to reflect any pending information, findings, or radiology results not included in the patient?s in itial chart by the previous shift scribe. Case was signed out to me pending the neurologist to come by and see the patient. The neurologist came by and saw the patient and told the hospitalist that the patient can be discharged on vertigo and patient will be followed up as an outpatient. Patient will be discharged in stable condition. I reviewed all radiographic studies and labs. Vital signs are all stable.
== END 2025-06-05 20:40 | disposition home or self-care (01) ==
DX: R42 Dizziness and giddiness (principal); E11.9 Type 2 diabetes mellitus without complications; Z60.2 Problems related to living alone
CPT/HCPCS: 36415; 70450; 70553; 80053; 80307; 84703; 85025; 96361; 96374; 96375; 99284; A9577; J1200; J2765; J7030; Q0162; A9270